=== PATIENT | male | born 1995 ===

== ENCOUNTER 2017-06-10 13:23 | Emergency (ER) | payer MEDICAID ==
[2017-06-10 13:55] VITALS: BP 118/73; PULSE 78; RESP 18; TEMP 98.3; O2SAT 99
--- NOTE | 2017-06-10 14:12 | ED PDOC ---
Lower Extremity Pain/Injury Time Seen by Provider: 06/10/17 13:55 Chief Complaint (Nursing): Lower Extremity Problem/Injury Chief Complaint (Provider): Left ankle pain History Per: Patient History/Exam Limitations: no limitations Onset/Duration Of Symptoms: Days Current Symptoms Are (Timing): Still Present Additional Complaint(s): 21 y/o male presents to the ED complaining of left ankle pain since yesterday. Patient states he was playing basketball and landed on the foot incorrectly. He has been icing and elevating the foot with no improvement. Patient is able to ambulate with pain. Not taking any medications for pain. PMD: Provider TBD Past Medical History Reviewed: Historical Data, Nursing Documentation, Vital Signs Vital Signs: Last Vital Signs Temp 98.3 F 06/10/17 13:52 Pulse 78 06/10/17 13:52 Resp 18 06/10/17 13:52 BP 118/73 06/10/17 13:52 Pulse Ox 99 06/10/17 13:52 - Medical History PMH: No Chronic Diseases - Surgical History Surgical History: Appendectomy, Tonsillectomy - Family History Family History: States: Unknown Family Hx - Social History Alcohol: None Drugs: Denies - Home Medications Home Medications: Ambulatory Orders Medication Instructions Recorded Cephalexin [Keflex] 500 mg PO Q6 #28 cap 09/10/14 Ibuprofen 600 mg PO Q6H PRN #15 tab 09/10/14 Sulfamethoxazole/Trimethopri 1 tab PO BID #14 tab 09/10/14 [Bactrim Ds 800 mg-160 mg] Ibuprofen [Motrin] 600 mg PO Q8 PRN #21 tab 06/10/17 - Allergies Allergies/Adverse Reactions: Allergies Allergy/AdvReac Type Severity Reaction Status Date / Time No Known Allergies Allergy Verified 09/09/14 23:49 Review of Systems ROS Statement: Except As Marked, All Systems Reviewed And Found Negative Musculoskeletal: Positive for: Foot Pain (left foot/ankle pain and swelling) Neurological: Negative for: Weakness, Numbness, Other (tingling) Physical Exam - Reviewed Nursing Documentation Reviewed: Yes Vital Signs Reviewed: Yes - Physical Exam Appears: Positive for: Well, Non-toxic, No Acute Distress Skin: Positive for: Normal Color. Negative for: Rash Pulses-Dorsalis Pedis (L): 2+ Pulses-Dorsalis Pedis (R): 2+ Extremity: Positive for: Tenderness (Patient describes tenderness over the dorsum of left foot), Capillary Refill (< 2 sec), Swelling (mild swelling over the dorsum of left foot, and left lateral malleolus). Negative for: Deformity Neurologic/Psych: Positive for: Alert, Oriented (x3). Negative for: Motor/ Sensory Deficits - ECG O2 Sat by Pulse Oximetry: 99 (RA) Pulse Ox Interpretation: Normal - Progress ED Course And Treament: XRY OF FOOT: NEG FOR FX XRY OF ANKLE: NEG FOR FX PATIENT HAS FLAT SHOE WITH HIM. DOES NOT WANT CRUTCHES AT THIS TIME. Medical Decision Making Medical Decision Making: Impression: Left ankle injury Time: 14:00 Plan: --Motrin 600 mg PO --X-ray left ankle --X-ray left foot Patient informed of x-ray results and counseled regarding diagnosis. Scribe Attestation: Documented by Aminah Mckeon, acting as a scribe for Henny Olivera PA-C Provider Scribe Attestation: All medical record entries made by the Scribe were at my direction and personally dictated by me. I have reviewed the chart and agree that the record accurately reflects my personal performance of the history, physical exam, medical decision making, and the department course for this patient. I have also personally directed, reviewed, and agree with the discharge instructions and disposition. Disposition - Clinical Impression Clinical Impression: Foot sprain - Patient ED Disposition Is Patient to be Admitted: No - Disposition Disposition Time: 15:17 Condition: FAIR Prescriptions: Ibuprofen [Motrin] 600 mg PO Q8 PRN #21 tab PRN Reason: Pain, Moderate (4-7) Instructions: Foot Sprain (DC) Forms: [employer] (Chinese), [facility] ED School/Work Excuse
--- NOTE | 2017-06-10 15:21 | RAD ---
PROCEDURE: Left Ankle Radiographs. HISTORY: Unspecified ankle injury COMPARISON: None FINDINGS: BONES: Normal. No fracture. JOINTS: Normal. No osteoarthritis. Ankle mortise maintained. Talar dome intact SOFT TISSUES: Normal. OTHER FINDINGS: None. IMPRESSION: Normal left ankle radiographs.
--- NOTE | 2017-06-10 16:59 | RAD ---
PROCEDURE: Left Foot Radiographs. HISTORY: Pain. No history of recent/ related trauma provided COMPARISON: 09/10/2014 left foot radiographs FINDINGS: BONES: Normal. No fracture. JOINTS: Normal. SOFT TISSUES: Normal. OTHER FINDINGS: None. IMPRESSION: No significant or acute findings to account for/ related to the clinical presentation. No significant interval change compared to the prior examination(s).
== END 2017-06-10 16:09 | disposition home or self-care (01) ==
LOC: H.ER 13:23
DX: S93.602A Unspecified sprain of left foot, initial encounter (principal); X50.1XXA Overexertion from prolonged static or awkward postures, initial encounter; Y93.67 Activity, basketball